=== PATIENT | male | born 1960 | race Caucasian/White ===

== ENCOUNTER 2019-09-28 13:21 | Emergency (ER) | payer MEDICAID ==
[2019-09-28 13:43] VITALS: BP 143/94; PULSE 85
--- NOTE | 2019-09-28 14:02 | EDM.PDOC ---
ED HPI GENERAL MEDICAL PROBLEM - General Chief Complaint: Lower Extremity Injury/Pain Stated Complaint: POSSIBLE BLOOD CLOT IN L LEG Time Seen by Provider: 09/28/19 13:54 Source of Information: Reports: Patient History Limitations: Reports: No Limitations - History of Present Illness INITIAL COMMENTS - FREE TEXT/NARRATIVE: Alert very pleasant 59 year old male whom just completed chemotherapy 2 weeks ago for metastatic prostate cancer. Patient noticed slight swelling left inner lower leg with swelling and slight erythema with itching noted 2-3 days ago. Patient notes swelling is intermittently worse in bilateral lower legs. Patient is still feeling some of the effects of his last round of chemotherapy but improving as expected. Patient had a superficial blood clot in his right arm after second round of chemotherapy which was treated with ASA 325mg daily. Patient and sister (whom is a nurse) are concerned regarding DVT in his left leg due to symptoms, chemotherapy/cancer diagnosis with increased risk factors. Left Ankle Pain Score (Numeric/FACES): 4 - Related Data Allergies Allergy/AdvReac Type Severity Reaction Status Date / Time codeine AdvReac Nausea and Verified 09/28/19 13:43 Vomiting Dairy Products AdvReac Diarrhea Verified 09/28/19 13:43 gluten AdvReac Nausea and Verified 09/28/19 13:43 Vomiting morphine AdvReac Nausea and Verified 09/28/19 13:43 Vomiting Home Meds: Home Meds PARoxetine [Paxil] 10 mg PO DAILY 09/28/19 [History] predniSONE [Prednisone] 5 mg PO DAILY 09/28/19 [History] Past Medical History HEENT History: Reports: Cataract Cardiovascular History: Reports: Blood Clots/VTE/DVT, Hypertension Musculoskeletal History: Reports: Fracture Psychiatric History: Reports: Depression Oncologic (Cancer) History: Reports: Prostate - Past Surgical History HEENT Surgical History: Reports: Adenoidectomy, Cataract Surgery, Tonsillectomy Musculoskeletal Surgical History: Reports: Arthroscopic Knee Social & Family History - Tobacco Use Smoking Status *Q: Never Smoker - Caffeine Use Caffeine Use: Reports: Coffee - Recreational Drug Use Recreational Drug Use: No Review of Systems - Review of Systems Review Of Systems: Comprehensive ROS is negative, except as noted in HPI. ED EXAM, GENERAL - Physical Exam Exam: See Below Exam Limited By: No Limitations General Appearance: Alert, WD/WN, No Apparent Distress Eye Exam: Bilateral Eye: Conjunctival Injection, Normal Inspection Ears: Normal External Exam, Hearing Grossly Normal Nose: Normal Inspection Throat/Mouth: Normal Inspection, Normal Voice, No Airway Compromise Head: Atraumatic, Normocephalic Neck: Normal Inspection, Supple, Non-Tender Respiratory/Chest: Lungs Clear, Normal Breath Sounds Cardiovascular: Regular Rate, Rhythm. No: No Edema GI/Abdominal: Non-Tender Extremities: Pedal Edema (spider veins noted inner lower left leg with slight erythema and swelling noted. Right lower leg simila siper veins without erythema or swelling) Neurological: Alert, Oriented, CN II-XII Intact, Normal Cognition, Normal Gait, Normal Reflexes, No Motor/Sensory Deficits Psychiatric: Normal Affect, Normal Mood Skin Exam: Warm, Dry, Intact, Normal Color, No Rash Course - Vital Signs Last Recorded V/S: Last Vital Signs Temp 36.4 C 09/28/19 13:42 Pulse 85 09/28/19 13:42 Resp 16 09/28/19 13:42 BP 143/94 H 09/28/19 13:42 Pulse Ox 98 09/28/19 13:42 - Orders/Labs/Meds Orders: Active Orders 24 hr Category Date Time Status VL Duplex Lwr Ext Veins Ltd Lt [US] Stat Exams 09/28/19 13:52 Taken - Radiology Interpretation Free Text/Narrative:: Ultrasound Left LE Venous Doppler ordered to R/O DVT. Discuss laboratory studies which may be need if DVT study positive. Patient would like to wait on blood draw at this time. He will be getting his blood drawn this coming week at the [facility] to follow-up on Cancer treatment/chemotherapy. 1500: Waiting for US to be completed at this time. Travel Occupational Therapist: noted superficial thrombophlebitis in medial left lower leg. No signs of DVT noted on doppler evaluation during ER visit. Departure - Departure Time of Disposition: 15:19 Disposition: Home, Self-Care 01 Clinical Impression: Thrombophlebitis leg - Discharge Information Instructions: Thrombophlebitis Referrals: Nick Akhtar NP [Primary Care Provider] - Forms: ED Department Discharge Additional Instructions: 1. Aspirin 325mg daily to help break up clot in left lower leg in the superficial venous system. 2. Warm compress to the area to help break-up clot formation. 3. No signs of deep vein involvement noted on Ultrasound today. 4. Repeat US in 2 weeks if symptoms remain would be recommended to ensure no new growth of DVT. 5. Follow-up with PCP as needed if new concerns or changes. Sepsis Event Note - Evaluation Sepsis Screening Result: No Definite Risk - Focused Exam Vital Signs: Vital Signs Temp Pulse Resp BP Pulse Ox 09/28/19 13:42 36.4 C 85 16 143/94 H 98 Date Exam was Performed: 09/28/19 Time Exam was Performed: 15:27 - My Orders Last 24 Hours: My Active Orders 09/28/19 13:52 VL Duplex Lwr Ext Veins Ltd Lt [US] Stat - Assessment/Plan Last 24 Hours: My Active Orders 09/28/19 13:52 VL Duplex Lwr Ext Veins Ltd Lt [US] Stat
--- NOTE | 2019-09-29 10:04 | US ---
VL Duplex Lwr Ext Veins Ltd Lt INDICATION: swelling and discomfort FINDINGS: Ultrasound examination of the lower extremity using Doppler and compressive technique demonstrates that the common femoral, femoral, and popliteal veins are patent, and negative for thrombus. The calf veins were segmentally visualized and are negative where seen. There is some thrombus seen in the greater saphenous vein in the midcalf IMPRESSION: Negative for deep venous thrombosis. Superficial thrombosis in the greater saphenous vein in the midcalf
== END 2019-09-28 15:43 | disposition home or self-care (01) ==
LOC: JP.ED 13:21
DX: I80.02 Phlebitis and thrombophlebitis of superficial vessels of left lower extremity (principal); I10 Essential (primary) hypertension; F32.9 Major depressive disorder, single episode, unspecified; Z88.5 Allergy status to narcotic agent; Z91.011 Allergy to milk products; Z91.018 Allergy to other foods; Z79.899 Other long term (current) drug therapy; Z86.718 Personal history of other venous thrombosis and embolism
CPT/HCPCS: 93971-26-LT; 93971-LT; 99283-25

== ENCOUNTER 2019-10-30 11:00 | Emergency (ER) | payer MEDICAID ==
[2019-10-30 11:16] VITALS: BP 143/97; PULSE 101
[2019-10-30] MEDS ORDERED: Sodium Chloride 0.9% 10 ML Syringe FLUSH PRN (11:31)
[2019-10-30] MEDS ORDERED: Sodium Chloride 0.9% 1,000 ML IV ONE (11:31)
[2019-10-30] MEDS ORDERED: Acetaminophen 500 MG Tab PO ONE (11:32)
--- NOTE | 2019-10-30 11:33 | EDM.PDOC ---
ED HPI GENERAL MEDICAL PROBLEM - General Chief Complaint: General Stated Complaint: PAIN UNDER LOWER RIB CAGE ON RIGHT Time Seen by Provider: 10/30/19 11:30 Source of Information: Reports: Patient History Limitations: Reports: No Limitations - History of Present Illness INITIAL COMMENTS - FREE TEXT/NARRATIVE: Kj is a 59 year old male who presents to the ED today with c/o left sided lower rib pain, started yesterday, denies any other injuries. Patient was lifting heavy yesterday, no hemoptysis. Patient has healing bruise to left side, not where pain is unsure where that was from. Patient does endorse sob for the last 24 hours. Patient denies any chest pain, pain at times is sharp, spasm in nature, ibuprofen helps minimally. Very deep breath makes pain worse. Patient just finished chemotherapy for prostate CA. Patient does have hx of DVT, was on full strength aspirin but has not been recently. Patient denies any fever or URI symptoms. Onset: Sudden Duration: Hour(s): (24) Left Chest Pain Score (Numeric/FACES): 8 - Related Data Allergies Allergy/AdvReac Type Severity Reaction Status Date / Time codeine AdvReac Nausea and Verified 09/28/19 13:43 Vomiting Dairy Products AdvReac Diarrhea Verified 09/28/19 13:43 gluten AdvReac Nausea and Verified 09/28/19 13:43 Vomiting morphine AdvReac Nausea and Verified 09/28/19 13:43 Vomiting Home Meds: Home Meds predniSONE [Prednisone] 5 mg PO DAILY 09/28/19 [History] Gabapentin [Neurontin] 300 mg PO DAILY 10/30/19 [History] Past Medical History HEENT History: Reports: Cataract Cardiovascular History: Reports: Blood Clots/VTE/DVT, Hypertension Musculoskeletal History: Reports: Fracture Psychiatric History: Reports: Depression Oncologic (Cancer) History: Reports: Prostate - Past Surgical History HEENT Surgical History: Reports: Adenoidectomy, Cataract Surgery, Tonsillectomy Musculoskeletal Surgical History: Reports: Arthroscopic Knee Social & Family History - Tobacco Use Smoking Status *Q: Never Smoker - Caffeine Use Caffeine Use: Reports: Coffee - Recreational Drug Use Recreational Drug Use: No ED ROS GENERAL - Review of Systems Review Of Systems: Comprehensive ROS is negative, except as noted in HPI. ED EXAM, GENERAL - Physical Exam Exam: See Below Exam Limited By: No Limitations General Appearance: Alert, WD/WN, Thin Eye Exam: Bilateral Eye: EOMI Ears: Normal External Exam Throat/Mouth: Normal Oropharynx Head: Atraumatic Neck: Normal Inspection, Supple Respiratory/Chest: No Respiratory Distress, Lungs Clear, Other (Tender to left area of bruising, no other tenderness appreciated) Cardiovascular: Tachycardia GI/Abdominal: Normal Bowel Sounds, Soft, Non-Tender Back Exam: Normal Inspection Extremities: Normal Inspection Neurological: Alert, Oriented, CN II-XII Intact Psychiatric: Normal Affect Skin Exam: Warm, Pallor. No: Rash Lymphatic: No Adenopathy EKG INTERPRETATION EKG Date: 10/30/19 Time: 12:05 Rhythm: NSR [place]: Normal P-Wave: Present QRS: Normal ST-T: Normal QT: Normal Course - Vital Signs Last Recorded V/S: Last Vital Signs Temp 37 C 10/30/19 11:17 Pulse 101 H 10/30/19 11:17 Resp 16 10/30/19 11:17 BP 143/97 H 10/30/19 11:17 Pulse Ox 95 10/30/19 11:17 Kj is a very pleasant 59 year old male, hx of Prostate CA, just finished chemotherapy, presents with left lower rib pain and sob for the last 24 hours. Please refer to HPI and focused exam. Patient here is pale, mildly tachycardic, oxygen saturation of 95%. Patient's symptoms certainly seem pleuritic in nature, however, given his sob in light of DVT hx along with his CA hx and tachycardia I am concerned about a PE. A d dimer will likely be high regardless given his cancer hx so I will go ahead and scan his chest. Patient given IV fluids, Tylenol for pain as he did drive himself here and declines offer for anything stronger. Patient blood work today returns with normal white count. HGB stable. Platelet count is stable. CRP is mildly elevated. UA unremarkable. CT PE unfortunately shoes multiple left lower lobe filling defects in the lower branching pulmonary arteries consistent with PE. Patient also has a 1.7 x 2.4 x 1.2 cm mass in right upper lobe of unknown chronology. I discussed findings with patient, he did provide me with primary urologist, Dr. Neves at [facility], I was able to touch base with Jes, nurse practitioner, she did inform me that patient is going to be starting Xtandi and that literature has shown that the newer anti- coagulation medications do not work well with this. Patient will be started on Lovenox with Coumadin bridge. I had a long discussion with patient, he wishes to return here for his injections for these were ordered for IVO over the weekend with INR check on Saturday. INR today is 0.94. Patient will start Coumadin 5 mg for the next 7 days unless he reaches therapeutic level prior to this. Patient was given detailed written information and was encouraged to call his PCP today or Saturday to get into their Coumadin clinic by this coming Saturday. Patient was given an injection of Lovenox here prior to discharge. I discussed in detail reasons to return to the ED including SOB, bleeding concerns. Patient was agreeable. updated by RN. Patient discharged in stable condition. I did inform KARTIK Andre at [facility] about the masslike focus on CT today in [place]. - Orders/Labs/Meds Orders: Active Orders 24 hr Category Date Time Status EKG Documentation Completion [RC] ASDIRECTED Care 10/30/19 11:30 Active Peripheral IV Care [RC] . DIRECTED Care 10/30/19 11:31 Active Iopamidol [Isovue-370 (76%)] Med 10/30/19 12:30 Active 100 ml IV . DIRECTED Sodium Chloride 0.9% [Normal Saline] 100 ml Med 10/30/19 12:30 Active IV ASDIRECTED Sodium Chloride 0.9% [Saline Flush] Med 10/30/19 11:31 Active 10 ml FLUSH ASDIRECTED PRN Peripheral IV Insertion Adult [OM.PC] Routine Oth 10/30/19 11:31 Ordered EKG 12 Lead [EK] Stat Ther 10/30/19 11:30 Ordered Medication Orders Sodium Chloride (Normal Saline) 100 mls @ 3 mls/sec IV ASDIRECTED ELAINE Last Admin: 10/30/19 12:39 Dose: 3 mls/sec Documented by: JENNIFER Iopamidol (Isovue-370 (76%)) 100 ml IV . DIRECTED ELAINE Last Admin: 10/30/19 12:39 Dose: 100 ml Documented by: JENNIFER Sodium Chloride (Saline Flush) 10 ml FLUSH ASDIRECTED PRN PRN Reason: Keep Vein Open Last Admin: 10/30/19 11:46 Dose: 10 ml Documented by: HALLIAN Labs: Laboratory Tests 10/30/19 10/30/19 10/30/19 Range/Units 11:33 11:42 11:42 WBC 6.0 (4.5-11.0) K/uL RBC 2.69 L (4.30-5.90) M/uL Hgb 10.6 L D (12.0-15.0) g/dL Hct 31.4 L (40.0-54.0) % MCV 117 H (80-98) fL MCH 39 H (27-31) pg MCHC 34 (32-36) % Plt Count 161 (150-400) K/uL Neut % (Auto) 81 H (36-66) % Lymph % (Auto) 8 L (24-44) % Spink % (Auto) 10 H (2-6) % Eos % (Auto) 1 L (2-4) % Baso % (Auto) 0 (0-1) % PT (9.5-12.0) sec INR (0.80-1.20) Sodium 140 (140-148) mmol/L Potassium 3.7 (3.6-5.2) mmol/L Chloride 104 (100-108) mmol/L Carbon Dioxide 26 (21-32) mmol/L Anion Gap 13.7 (5.0-14.0) mmol/L BUN 13 (7-18) mg/dL Creatinine 0.9 (0.8-1.3) mg/dL Est Cr Clr Drug Dosing 80.58 mL/min Estimated GFR (MDRD) > 60 (>60) Glucose 123 H (74-106) mg/dL Calcium 8.4 L (8.5-10.1) mg/dL Total Bilirubin 1.1 H (0.2-1.0) mg/dL AST 23 (15-37) U/L ALT 29 (12-78) U/L Alkaline Phosphatase 85 (46-116) U/L Troponin I (0.000-0.056) ng/mL C-Reactive Protein (0.0-0.3) mg/dL Total Protein 7.1 (6.4-8.2) g/dL Albumin 3.4 (3.4-5.0) g/dL Globulin 3.7 H (2.3-3.5) g/dL Albumin/Globulin Ratio 0.9 L (1.2-2.2) Urine Color Other A (YELLOW) Urine Appearance Clear (CLEAR) Urine pH 5.5 (5.0-8.0) Ur Specific [place] 1.010 (1.008-1.030) Urine Protein 30 H (NEGATIVE) mg/dL Urine Glucose (UA) Negative (NEGATIVE) mg/dL Urine Ketones Negative (NEGATIVE) mg/dL Urine Occult Blood Trace-intact H (NEGATIVE) Urine Nitrite Negative (NEGATIVE) Urine Bilirubin Small H (NEGATIVE) Urine Urobilinogen 0.2 (0.2-1.0) EU/dL Ur Leukocyte Esterase Negative (NEGATIVE) Urine RBC 0-5 (0-5) Urine WBC Not seen (0-5) Ur Epithelial Cells Not seen Amorphous Sediment Not seen Urine Bacteria Not seen Urine Mucus Moderate 10/30/19 10/30/19 10/30/19 Range/Units 11:42 11:58 13:54 WBC (4.5-11.0) K/uL RBC (4.30-5.90) M/uL Hgb (12.0-15.0) g/dL Hct (40.0-54.0) % MCV (80-98) fL MCH (27-31) pg MCHC (32-36) % Plt Count (150-400) K/uL Neut % (Auto) (36-66) % Lymph % (Auto) (24-44) % Spink % (Auto) (2-6) % Eos % (Auto) (2-4) % Baso % (Auto) (0-1) % PT 10.2 (9.5-12.0) sec INR 0.94 (0.80-1.20) Sodium (140-148) mmol/L Potassium (3.6-5.2) mmol/L Chloride (100-108) mmol/L Carbon Dioxide (21-32) mmol/L Anion Gap (5.0-14.0) mmol/L BUN (7-18) mg/dL Creatinine (0.8-1.3) mg/dL Est Cr Clr Drug Dosing mL/min Estimated GFR (MDRD) (>60) Glucose (74-106) mg/dL Calcium (8.5-10.1) mg/dL Total Bilirubin (0.2-1.0) mg/dL AST (15-37) U/L ALT (12-78) U/L Alkaline Phosphatase (46-116) U/L Troponin I < 0.017 (0.000-0.056) ng/mL C-Reactive Protein 9.62 H (0.0-0.3) mg/dL Total Protein (6.4-8.2) g/dL Albumin (3.4-5.0) g/dL Globulin (2.3-3.5) g/dL Albumin/Globulin Ratio (1.2-2.2) Urine Color (YELLOW) Urine Appearance (CLEAR) Urine pH (5.0-8.0) Ur Specific Eugene (1.008-1.030) Urine Protein (NEGATIVE) mg/dL Urine Glucose (UA) (NEGATIVE) mg/dL Urine Ketones (NEGATIVE) mg/dL Urine Occult Blood (NEGATIVE) Urine Nitrite (NEGATIVE) Urine Bilirubin (NEGATIVE) Urine Urobilinogen (0.2-1.0) EU/dL Ur Leukocyte Esterase (NEGATIVE) Urine RBC (0-5) Urine WBC (0-5) Ur Epithelial Cells Amorphous Sediment Urine Bacteria Urine Mucus Meds: Medications Generic Name Dose Route Start Last Admin Trade Name Freq PRN Reason Stop Dose Admin Sodium Chloride 100 mls @ 3 mls/sec 10/30/19 12:30 10/30/19 12:39 Normal Saline IV 3 mls/sec ASDIRECTED ELAINE Administration Iopamidol 100 ml 10/30/19 12:30 10/30/19 12:39 Isovue-370 (76%) IV 100 ml . DIRECTED ELAINE Administration Sodium Chloride 10 ml 10/30/19 11:31 10/30/19 11:46 Saline Flush FLUSH 10 ml ASDIRECTED PRN Administration Keep Vein Open Discontinued Medications Generic Name Dose Route Start Last Admin Trade Name Freq PRN Reason Stop Dose Admin Acetaminophen 1,000 mg 10/30/19 11:32 10/30/19 11:48 Tylenol Extra Strength PO 10/30/19 11:33 1,000 mg ONETIME ONE Administration Enoxaparin Sodium 80 mg 10/30/19 14:11 Lovenox SUBCUT 10/30/19 14:12 ONETIME ONE Sodium Chloride 1,000 mls @ 999 mls/hr 10/30/19 11:31 10/30/19 11:44 Normal Saline IV 06/26/20 12:31 999 mls/hr .BOLUS ONE Administration Sodium Chloride 10 ml 10/30/19 12:26 10/30/19 12:39 Saline Flush FLUSH 10/30/19 12:27 10 ml ONETIME ONE Administration Warfarin Sodium 5 mg 10/30/19 14:14 Coumadin PO 10/30/19 14:15 ONETIME ONE Departure - Departure Time of Disposition: 15:00 Disposition: Home, Self-Care 01 Condition: Fair Clinical Impression: PE, Pulmonary embolism, Left-sided chest pain, Mass of upper lobe of lung - Discharge Information Instructions: Bleeding Precautions When on Anticoagulant Therapy, Adult, Pulmonary Embolism Referrals: Nick Akhtar BIODIESEL ENGINEERING MANAGER [Primary Care Provider] - Forms: ED Department Discharge Additional Instructions: Kj, You have a pulmonary embolism. We need to start you on an injection that thins your blood for the next few days called Lovenox. You need to come here preferably by 8 AM tomorrow morning for your next injection. You will need to come twice a day, as close to 12 hours apart as you can. So 8 AM tomorrow morning then 8 PM tomorrow evening. You will also start taking Coumadin (warfarin) daily. This will be for the next few months. We dose your Coumadin by checking a blood test called an INR. It needs to be between 2-3. You were given a dose here in the ER so do not take another dose until tomorrow and try to take them at the same time every day. You only take the pill (Coumadin) once a day. I ordered your INR to be checked on the here prior to your Lovenox injection. You need to call your primary doctor on Saturday at the clinic. They have an "INR clinic" that you should be following up with, the clinic can arrange that for you on Saturday. They will tell you on Saturday if you need to continue with the Lovenox injection and if you need to change your Coumadin dosing. Make sure you call them, I unfortunately cannot schedule this for you. If you want, you can call them when you get home today. Return here with any worsening shortness of breath or bleeding concerns. Take care and good luck with everything, it was nice meeting you. Sepsis Event Note (ED) - Evaluation Sepsis Screening Result: No Definite Risk - Focused Exam Vital Signs: Vital Signs Temp Pulse Resp BP Pulse Ox 10/30/19 11:17 37 C 101 H 16 143/97 H 95 10/30/19 11:16 37 C 101 H 16 143/97 H 95 - My Orders Last 24 Hours: My Active Orders 10/30/19 11:30 EKG Documentation Completion [RC] ASDIRECTED EKG 12 Lead [EK] Stat 10/30/19 11:31 Peripheral IV Care [RC] . DIRECTED Sodium Chloride 0.9% [Saline Flush] 10 ml FLUSH ASDIRECTED PRN Peripheral IV Insertion Adult [OM.PC] Routine 10/30/19 12:30 Iopamidol [Isovue-370 (76%)] 100 ml IV . DIRECTED Sodium Chloride 0.9% [Normal Saline] 100 ml IV ASDIRECTED - Assessment/Plan Last 24 Hours: My Active Orders 10/30/19 11:30 EKG Documentation Completion [RC] ASDIRECTED EKG 12 Lead [EK] Stat 10/30/19 11:31 Peripheral IV Care [RC] . DIRECTED Sodium Chloride 0.9% [Saline Flush] 10 ml FLUSH ASDIRECTED PRN Peripheral IV Insertion Adult [OM.PC] Routine 10/30/19 12:30 Iopamidol [Isovue-370 (76%)] 100 ml IV . DIRECTED Sodium Chloride 0.9% [Normal Saline] 100 ml IV ASDIRECTED
[2019-10-30] MEDS ORDERED: Sodium Chloride 0.9% 10 ML Syringe FLUSH ONE (12:26)
[2019-10-30] MEDS ORDERED: Sodium Chloride 0.9% 100 ML IV SCH (12:30)
[2019-10-30] MEDS ORDERED: Iopamidol 755 Mg/ML 100 ML Bottle IV SCH (12:30)
--- NOTE | 2019-10-30 12:59 | CT ---
Ang Chest CLINICAL HISTORY: SOB TECHNIQUE: Thin section axial contiguous tomographic sections were taken through the chest after bolus IV iodinated contrast administration. Coronal and sagittal images were reconstructed. Auto dosage reduction and iterative reconstruction techniques employed. FINDINGS: There is a 1.7 x 2.4 x 1.2 cm irregular masslike focus in the right posterior apex. There is some stranding extending to the posterior pleura. There is moderate airspace disease in the left lower lobe with some left pleural effusion There is vessel cut off seen in branching left lower lobe pulmonary arteries in the area of airspace disease. IMPRESSION: Multiple left lower lobe filling defects in the lower branching pulmonary arteries consistent with pulmonary embolus. The left effusion with airspace disease may represent pulmonary infarct. 1.7 x 2.4 x 1.2 cm irregular masslike focus in the right upper lobe of unknown chronology. Neoplasm is not excluded
[2019-10-30] MEDS ORDERED: Enoxaparin 80 MG/0.8 ML Syringe SUBCUT ONE (14:11)
[2019-10-30] MEDS ORDERED: Warfarin 5 MG Tab PO ONE (14:14)
== END 2019-10-30 14:49 | disposition home or self-care (01) ==
LOC: JP.ED 11:00
DX: I26.99 Other pulmonary embolism without acute cor pulmonale (principal); I10 Essential (primary) hypertension; R91.8 Other nonspecific abnormal finding of lung field; Z88.5 Allergy status to narcotic agent; Z91.011 Allergy to milk products; Z91.048 Other nonmedicinal substance allergy status; Z79.899 Other long term (current) drug therapy
CPT/HCPCS: 36415; 71275; 80053; 81001; 84484; 85025; 85610; 86140; 93005; 96372; 99284; A9270; J1650; J7030; J7050; Q9967

== ENCOUNTER 2019-12-31 14:28 | Emergency (ER) | payer MEDICAID ==
[2019-12-31 15:13] VITALS: BP 151/91; PULSE 74
--- NOTE | 2019-12-31 15:45 | EDM.PDOC ---
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 Waxing and waning. Denies any trauma or injury. Denies any swelling. Denies any redness. Denies any chest pain shortness breath. Denies any cough or fever. Denies any abdominal pain diarrhea or constipation. Denies any urinary symptom. Right Leg Pain Score (Numeric/FACES): 5 - Related Data Allergies Allergy/AdvReac Type Severity Reaction Status Date / Time codeine AdvReac Nausea and Verified 12/31/19 15:32 Vomiting Dairy Products AdvReac Diarrhea Verified 12/31/19 15:32 gluten AdvReac Nausea and Verified 12/31/19 15:32 Vomiting morphine AdvReac Nausea and Verified 12/31/19 15:32 Vomiting Home Meds: Home Meds Gabapentin [Neurontin] 300 mg PO DAILY 10/30/19 [History] Enzalutamide [Xtandi] 120 mg PO DAILY 12/31/19 [History] Leuprolide [Lupron Depot 3-Month] 1 injection IM ASDIRECTED 12/31/19 [History] Losartan [Cozaar] 50 mg PO DAILY 12/31/19 [History] PARoxetine [Paxil] 10 mg PO DAILY 12/31/19 [History] [place]-223 Dichloride [Xofigo] 1 dose IM ASDIRECTED 12/31/19 [History] Warfarin [Coumadin] 0 mg PO ASDIRECTED 12/31/19 [History] Past Medical History HEENT History: Reports: Cataract Cardiovascular History: Reports: Blood Clots/VTE/DVT, Hypertension Musculoskeletal History: Reports: Fracture Psychiatric History: Reports: Depression Oncologic (Cancer) History: Reports: Prostate - Past Surgical History HEENT Surgical History: Reports: Adenoidectomy, Cataract Surgery, Tonsillectomy Musculoskeletal Surgical History: Reports: Arthroscopic Knee Social & Family History - Tobacco Use Smoking Status *Q: Never Smoker - Caffeine Use Caffeine Use: Reports: Coffee - Recreational Drug Use Recreational Drug Use: No Review of Systems - Review of Systems Review Of Systems: Comprehensive ROS is negative, except as noted in HPI. ED EXAM, GENERAL - Physical Exam Exam: See Below Exam Limited By: No Limitations General Appearance: Alert, WD/WN, No Apparent Distress Head: Atraumatic, Normocephalic Neck: Normal Inspection, Supple, Non-Tender, Full Range of Motion Respiratory/Chest: No Respiratory Distress, Lungs Clear, Normal Breath Sounds, No Accessory Muscle Use, Chest Non-Tender Cardiovascular: Normal Peripheral Pulses, Regular Rate, Rhythm, No Edema, No Gallop, No JVD, No Murmur, No Rub GI/Abdominal: Normal Bowel Sounds, Soft, Non-Tender, No Organomegaly, No Distention, No Abnormal Bruit, No Mass Extremities: Normal Inspection, Normal Range of Motion, Non-Tender, No Pedal Edema, Normal Capillary Refill, Leg Pain. No: Joint Swelling, Aravind's Sign, Redness Neurological: Alert, Oriented, CN II-XII Intact, Normal Cognition, Normal Gait, Normal Reflexes, No Motor/Sensory Deficits Skin Exam: Warm, Dry, Intact, Normal Color, No Rash Course - Vital Signs Last Recorded V/S: Last Vital Signs Temp 36.1 C 12/31/19 15:30 Pulse 74 12/31/19 15:30 Resp 16 12/31/19 15:30 BP 151/91 H 12/31/19 15:30 Pulse Ox 98 12/31/19 15:30 - Orders/Labs/Meds Orders: Active Orders 24 hr Category Date Time Status VL Duplex Lwr Ext Veins Ltd Rt [US] Stat Exams 12/31/19 15:49 Ordered - Radiology Interpretation Free Text/Narrative:: Patient was seen and examined shortly after arrival. Stable. Ultrasound negative for DVT. Patient was reassured. Advised to continue his home meds. Close follow-up with PCP. Come back for any concern or any worsening symptom. Patient agrees with the plan. Stable for discharge. Departure - Departure Time of Disposition: 17:00 Disposition: Home, Self-Care 01 Condition: Good Clinical Impression: Leg pain, right - Discharge Information Referrals: Nick Akhtar, ENVIRONMENTAL PROTECTION SPECIALIST [Primary Care Provider] - Forms: ED Department Discharge Additional Instructions: Rest and stay well-hydrated Tylenol for pain or discomfort Close follow-up with PCP in one week, sooner if symptom worsen Come back for any concern or any worsening symptom Sepsis Event Note (ED) - Evaluation Sepsis Screening Result: No Definite Risk - Focused Exam Vital Signs: Vital Signs Temp Pulse Resp BP Pulse Ox 12/31/19 15:30 36.1 C 74 16 151/91 H 98 12/31/19 15:11 36.1 C 74 16 151/91 H 98 - My Orders Last 24 Hours: My Active Orders 12/31/19 15:49 VL Duplex Lwr Ext Veins Ltd Rt [US] Stat - Assessment/Plan Last 24 Hours: My Active Orders 12/31/19 15:49 VL Duplex Lwr Ext Veins Ltd Rt [US] Stat Plan: Rest and stay well-hydrated Tylenol for pain or discomfort Close follow-up with PCP in one week, sooner if symptom worsen Come back for any concern or any worsening symptom
--- NOTE | 2020-01-01 09:20 | US ---
VL Duplex Lwr Ext Veins Ltd Rt INDICATION: rt leg pain FINDINGS: Ultrasound examination of the lower extremity using Doppler and compressive technique demonstrates that the common femoral, femoral, and popliteal veins are patent, and compressible throughout. The calf veins were segmentally visualized and are negative where seen. IMPRESSION: Negative for deep venous thrombosis.
== END 2019-12-31 17:20 | disposition home or self-care (01) ==
LOC: JP.ED 14:28
DX: M79.661 Pain in right lower leg (principal); I10 Essential (primary) hypertension; F32.9 Major depressive disorder, single episode, unspecified; Z79.899 Other long term (current) drug therapy; Z86.718 Personal history of other venous thrombosis and embolism; Z86.711 Personal history of pulmonary embolism; Z79.01 Long term (current) use of anticoagulants; Z88.5 Allergy status to narcotic agent; Z91.011 Allergy to milk products; Z91.048 Other nonmedicinal substance allergy status
CPT/HCPCS: 93971-26; 93971-RT; 99283-25

== ENCOUNTER 2021-01-14 17:58 | Emergency (ER) | payer MEDICAID ==
[2021-01-14 18:15] VITALS: BP 140/76; PULSE 81
--- NOTE | 2021-01-14 19:24 | CRLCR ---
For Patients: As a result of the Century Cures Act, medical imaging exams and procedure reports are released immediately into your electronic medical record. You may view this report before your referring provider. If you have questions, please contact your health care provider. Indication: Pain. Swelling. Technique: Three views of the right ankle. Comparison: None Findings: FindingsA comminuted fracture of the calcaneus is identified. Ankle mortise is intact. The talar dome is intact. Impression: Calcaneal fracture Dictated by Dalia Burrows MD @ 01/14/2021 7:21:46 PM (Electronically Signed)
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
== END 2021-01-14 20:06 | disposition home or self-care (01) ==
LOC: JP.ED 17:58
DX: S92.011A Displaced fracture of body of right calcaneus, initial encounter for closed fracture (principal); I10 Essential (primary) hypertension; Z79.01 Long term (current) use of anticoagulants; Z79.899 Other long term (current) drug therapy; Z88.5 Allergy status to narcotic agent; Z91.018 Allergy to other foods; Z86.718 Personal history of other venous thrombosis and embolism; Z91.011 Allergy to milk products; W22.09XA Striking against other stationary object, initial encounter
CPT/HCPCS: 29515; 73610-RT; 99283-25

== ENCOUNTER 2021-02-01 15:33 | Inpatient (IN) | payer MEDICAID ==
[2021-02-01] MEDS ORDERED: Cefepime 2 GM in Sodium Chloride 0.9% 50 ML IV ONE (17:20)
--- NOTE | 2021-02-01 17:27 | EDM.PDOC ---
ED HPI GENERAL MEDICAL PROBLEM - General Chief Complaint: Fever Stated Complaint: INFECTION? Time Seen by Provider: 02/01/21 17:10 - History of Present Illness INITIAL COMMENTS - FREE TEXT/NARRATIVE: 60-year-old female with a known long history of prostatic cancer widely metastatic apparently had 3 courses of chemotherapy over time and finished the last one about 8 days ago. Today he had a fever and comes because of that. His white count is extremely low noted in the clinic today compatible with a diagnosis of neutropenic fever. He has no cough or urinary symptoms or any other obvious sources urinalysis done and clinic this morning and apparently negative with no chest x-ray - Related Data Allergies Allergy/AdvReac Type Severity Reaction Status Date / Time codeine AdvReac Nausea and Verified 02/01/21 15:57 Vomiting Dairy Products AdvReac Diarrhea Verified 02/01/21 15:57 gluten AdvReac Nausea and Verified 02/01/21 15:57 Vomiting morphine AdvReac Nausea and Verified 02/01/21 15:57 Vomiting Home Meds: Home Meds Gabapentin [Neurontin] 300 mg PO TID 10/30/19 [History] Leuprolide [Lupron Depot 3-Month] 1 injection IM ASDIRECTED 12/31/19 [History] Warfarin [Coumadin] 1.5 mg PO ASDIRECTED 12/31/19 [History] Calcium Carbonate [Calcium] 250 mg PO DAILY 01/16/21 [History] Ubidecarenone [Coenzyme Q10] 400 mg PO DAILY 01/16/21 [History] Vitamin B Complex [B Complex] 1 each PO DAILY 01/16/21 [History] predniSONE [Prednisone] 5 mg PO BID 01/16/21 [History] Past Medical History HEENT History: Reports: Cataract Cardiovascular History: Reports: Blood Clots/VTE/DVT, Hypertension Musculoskeletal History: Reports: Fracture Other Musculoskeletal History: R heel Fx 01/14/21 Psychiatric History: Reports: Depression Oncologic (Cancer) History: Reports: Prostate - Infectious Disease History Infectious Disease History: Reports: Chicken Pox - Past Surgical History HEENT Surgical History: Reports: Adenoidectomy, Cataract Surgery, Tonsillectomy Musculoskeletal Surgical History: Reports: Arthroscopic Knee Social & Family History - Tobacco Use Tobacco Use Status *Q: Never Tobacco User - Caffeine Use Caffeine Use: Reports: Coffee, Soda, Tea ED ROS GENERAL - Review of Systems Review Of Systems: Comprehensive ROS is negative, except as noted in HPI. ED EXAM, SEPSIS - Physical Exam Exam: See Below Text/Narrative:: Alert cooperative male with normal vital signs appearing pale as he lays in a gurney. HEENT shows pale sclera. No facial droop. Mouth and throat appear to be normal. Neck is supple no increased nodes chest clear regular rate and rhythm no abnormal sounds abdomen soft active bowel sounds nontender skin extremities are pale but otherwise has no rash or petechiae or any other obvious abnormalities. Neurologic physiologic DTR and tone Exam Limited By: No Limitations Course - Vital Signs Text/Narrative:: Because of the likelihood of neutropenic fever secondary to chemotherapy course finished a week ago and no obvious source, he is given 2 g of cefepime to start for prophylaxis and will be admitted for neutropenic fever Last Recorded V/S: Last Vital Signs Temp 36.4 C 02/01/21 15:56 Pulse 109 H 02/01/21 18:18 Resp 18 02/01/21 18:18 BP 120/84 02/01/21 18:18 Pulse Ox 95 02/01/21 18:18 - Orders/Labs/Meds Orders: Active Orders 24 hr Category Date Time Status CULTURE BLOOD [BC] Stat Lab 02/01/21 17:30 Received Meds: Medications Discontinued Medications Generic Name Dose Route Start Last Admin Trade Name Deisy PRAndre Reason Stop Dose Admin Cefepime HCl Confirm 02/01/21 17:51 Cefepime 1 Gm Vial Administered 02/01/21 17:52 Dose 2 gm .ROUTE .STK-MED ONE Cefepime HCl 2 gm/ Sodium 50 mls @ 100 mls/hr 02/01/21 17:20 02/01/21 18:12 Chloride IV 02/01/21 17:49 100 mls/hr ONETIME ONE Administration Sodium Chloride Confirm 02/01/21 17:51 Normal Saline Administered 02/01/21 17:52 Dose 50 mls @ as directed .ROUTE .STK-MED ONE Departure - Departure Time of Disposition: 19:00 Disposition: Admitted As Inpatient 64 Condition: Good Clinical Impression: Chemotherapy induced neutropenia - Discharge Information Referrals: Nick Akhtar SERVICE LEARNING COORDINATOR [Primary Care Provider] - Forms: ED Department Discharge Sepsis Event Note (ED) - Evaluation Sepsis Screening Result: Possible Sepsis Risk - Focused Exam Vital Signs: Vital Signs Temp Pulse Resp BP Pulse Ox 02/01/21 18:18 109 H 18 120/84 95 02/01/21 17:49 98 110/81 02/01/21 17:23 110 H 113/83 93 L 02/01/21 16:43 107 H 106/83 94 L 02/01/21 15:56 36.4 C 124 H 16 135/86 96 02/01/21 15:44 36.4 C 124 H 16 135/86 96 - My Orders Last 24 Hours: My Active Orders 02/01/21 17:30 CULTURE BLOOD [BC] Stat - Assessment/Plan Last 24 Hours: My Active Orders 02/01/21 17:30 CULTURE BLOOD [BC] Stat
[2021-02-01] MEDS ORDERED: Cefepime 1 GM Vial ONE (17:51)
[2021-02-01] MEDS ORDERED: Sodium Chloride 0.9% 50 ML ONE (17:51)
[2021-02-01] MEDS ORDERED: Ondansetron 4 MG/2 ML SDV IVPUSH ONE (19:43)
[2021-02-01] MEDS ORDERED: Vancomycin 1 GM SDV IV SCH (20:00)
--- NOTE | 2021-02-01 20:40 | PCM.HP.2 ---
H&P History of Present Illness - General Date of Service: 02/01/21 Admit Problem/Dx: Admission Diagnosis/Problem Admission Diagnosis/Problem Neutropenia Source of Information: Patient, Family (), RN History Limitations: Reports: No Limitations - History of Present Illness Onset of Symptoms: Reports: Gradual Duration of Symptoms: Reports: Day(s): (worsen symptoms for the past 36 hrs. ) Location: Reports: Generalized (fever and chills for the past 36 hours, with highest temp being 101.4 on Saturday. not feeling well for the past few weeks.) Severity: Moderate Improves with: Reports: None Worsens with: Reports: None Context: Reports: Other (last chemo treatment 8 days ago ) Associated Symptoms: Reports: Fever/Chills, Loss of Appetite, Malaise, Nausea/Vomiting, Weakness - Related Data Allergies/Adverse Reactions: Allergies Allergy/AdvReac Type Severity Reaction Status Date / Time codeine AdvReac Nausea and Verified 02/01/21 15:57 Vomiting Dairy Products AdvReac Diarrhea Verified 02/01/21 15:57 gluten AdvReac Nausea and Verified 02/01/21 15:57 Vomiting morphine AdvReac Nausea and Verified 02/01/21 15:57 Vomiting Home Medications: Home Meds Gabapentin [Neurontin] 300 mg PO TID 10/30/19 [History] Leuprolide [Lupron [place] 3-Month] 1 injection IM ASDIRECTED 12/31/19 [History] Warfarin [Coumadin] 1.5 mg PO ASDIRECTED 12/31/19 [History] Calcium Carbonate [Calcium] 250 mg PO DAILY 01/16/21 [History] Ubidecarenone [Coenzyme Q10] 400 mg PO DAILY 01/16/21 [History] Vitamin B Complex [B Complex] 1 each PO DAILY 01/16/21 [History] predniSONE [Prednisone] 5 mg PO BID 01/16/21 [History] Past Medical History HEENT History: Reports: Cataract Cardiovascular History: Reports: Blood Clots/VTE/DVT, Hypertension Musculoskeletal History: Reports: Fracture Other Musculoskeletal History: R heel Fx 01/14/21 Psychiatric History: Reports: Depression Oncologic (Cancer) History: Reports: Prostate - Infectious Disease History Infectious Disease History: Reports: Chicken Pox - Past Surgical History HEENT Surgical History: Reports: Adenoidectomy, Cataract Surgery, Tonsillectomy Musculoskeletal Surgical History: Reports: Arthroscopic Knee Social & Family History - Tobacco Use Tobacco Use Status *Q: Never Tobacco User - Caffeine Use Caffeine Use: Reports: Coffee, Soda, Tea - Living Situation & Occupation Living situation: Reports: Occupation: Employed (lives with in [place], [place]. has two children age 31 yr and 34 yrs, 4 grandchildren.) H&P Review of Systems - Review of Systems: Review Of Systems: See Below General: Reports: Fever, Chills, Malaise, Weakness, Fatigue, Decreased Appetite HEENT: Reports: No Symptoms Pulmonary: Reports: No Symptoms Cardiovascular: Reports: No Symptoms Gastrointestinal: Reports: Diarrhea (reports from the chemo- has chronic diarrhea), Decreased Appetite, Nausea Genitourinary: Reports: Other (stage 4 prostate cancer with mets to the bone. first diagnosed 4 years ago. treatment at [facility]) Musculoskeletal: Reports: Foot Pain (fracture heel 2 weeks ago- stepped off the stair and missed. treatment non-wt bearing with recheck in 5 days with xray) Skin: Reports: No Symptoms Psychiatric: Reports: No Symptoms Neurological: Reports: No Symptoms Hematologic/Lymphatic: Reports: Anemia Immunologic: Reports: Anaphylaxis Exam - Exam Exam: See Below - Vital Signs Vital Signs: Last Vital Signs Temp 97.6 F 02/01/21 15:56 Pulse 109 H 02/01/21 18:18 Resp 18 02/01/21 18:18 BP 120/84 02/01/21 18:18 Pulse Ox 95 02/01/21 18:18 Weight: 153 lb - Exam Quality Assessment: DVT Prophylaxis General: Alert, Oriented, Cooperative, Mild Distress HEENT: PERRLA, Hearing Intact, Mucosa Moist & [place], Nares Patent, Normal Nasal Septum, Posterior Pharynx Clear, Conjunctiva Clear, EOMI, EACs Clear, TMs Clear Neck: Supple, Trachea Midline, 2 Lungs: Clear to Auscultation, Normal Respiratory Effort Cardiovascular: Regular Rate, Regular Rhythm GI/Abdominal Exam: Normal Bowel Sounds, Soft, Non-Tender, No Abnormal Bruit (Male) Exam: Deferred Rectal (Males) Exam: Deferred Extremities: Other (right foot and toes with edema/bruising/harshal wrap.) Peripheral Pulses: 2+: Radial (L), Radial (R) Skin: Warm, Dry, Intact, Ecchymosis (right foot and toes) Neurological: Cranial Nerves Intact, Reflexes Equal Bilateral, Strength Equal Bilateral, Normal Speech, Normal Tone Neuro Extensive - Mental Status: Alert, Oriented x3, Normal Mood/Affect, Normal Cognition Neuro Extensive - Motor, Sensory, Reflexes: Motor/Sensory Deficits (due to right calcaneous fracture). No: Normal Gait (ambulates with scooter) Psychiatric: Alert, Normal Affect, Normal Mood - Patient Data Lab Results Last 24 hrs: Laboratory Results - last 24 hr 02/01/21 Range/Units 19:05 SARS-CoV-2 RNA (BASILIO) Negative (NEGATIVE) Sepsis Event Note - Evaluation Sepsis Screening Result: Possible Sepsis Risk - Focused Exam Vital Signs: Vital Signs Temp Pulse Resp BP Pulse Ox 02/01/21 18:18 109 H 18 120/84 95 02/01/21 17:49 98 110/81 02/01/21 17:23 110 H 113/83 93 L 02/01/21 16:43 107 H 106/83 94 L 02/01/21 15:56 97.6 F 124 H 16 135/86 96 02/01/21 15:44 97.6 F 124 H 16 135/86 96 - Problem List (1) Chemotherapy induced neutropenia SNOMED Code(s): 426222713 ICD Code: D70.1 - AGRANULOCYTOSIS SECONDARY TO CANCER CHEMOTHERAPY; T45.1X5A - ADVERSE EFFECT OF ANTINEOPLASTIC AND IMMUNOSUP DRUGS, INIT Status: Acute Priority: High Current Visit: Yes (2) History of prostate cancer SNOMED Code(s): 234383761 ICD Code: Z85.46 - PERSONAL HISTORY OF MALIGNANT NEOPLASM OF PROSTATE Status: Chronic Current Visit: No (3) Closed right calcaneal fracture SNOMED Code(s): 59946173 ICD Code: S92.001A - UNSP FRACTURE OF RIGHT CALCANEUS, INIT FOR CLOS FX Status: Acute Priority: Low Current Visit: No Qualifiers: Encounter type: initial encounter Calcaneus location: body Fracture alignment: displaced Qualified Code(s): S92.011A - Displaced fracture of body of right calcaneus, initial encounter for closed fracture (4) Personal history of DVT (deep vein thrombosis) SNOMED Code(s): 214035611 ICD Code: Z86.718 - PERSONAL HISTORY OF OTHER VENOUS THROMBOSIS AND EMBOLISM Status: Chronic Current Visit: No (5) Neutropenia SNOMED Code(s): 675522058 ICD Code: D70.9 - NEUTROPENIA, UNSPECIFIED Status: Acute Current Visit: Yes Problem List Initiated/Reviewed/Updated: Yes Orders Last 24hrs: Active Orders 24 hr Category Date Time Status Patient Status Manage Transfer [TRANSFER] Routine ADT 02/01/21 20:11 Active Chest 1V Frontal [CR] Urgent Exams 02/01/21 19:41 Taken CULTURE BLOOD [BC] Stat Lab 02/01/21 17:30 Received Sodium Chloride 0.9% [Normal Saline] 1,000 ml Med 02/01/21 19:45 Active IV ASDIRECTED Vancomycin Med 02/01/21 20:00 Active 1 gm IV .PHARMACY TO DOSE Blood Culture x2 Reflex Set [OM.PC] Urgent Oth 02/01/21 19:42 Ordered Resuscitation Status Routine Resus Stat 02/01/21 20:24 Ordered Medication Orders Sodium Chloride (Normal Saline) 1,000 mls @ 125 mls/hr IV ASDIRECTED ELAINE Vancomycin HCl (Vancomycin 1 Gm Sdv) 1 gm IV .PHARMACY TO DOSE ELAINE Assessment/Plan Comment:: Assessment/Plan Comment:: ASSESSMENT AND PLAN - NEUTROPENIA, CHEMOTHERAPY INDUCED NEUTROPENIA, HISTORY OF PROSTATE CANCER WITH METS., PERSONAL HISTORY OF DVT, CLOSED RIGHT CALCANEAL FRACTURE NEUTROPENIA , CHEMOTHERAPY INDUCED NEUTROPENIA, HISTORY OF PROSTATE CANCER WITH METS TO BONE Mr. Sera west had chemotherapy about 8 days ago, since then has been weak and not eating well. reports no abdominal pain but does have nausea and vomiting with chronic diarrhea. report very little intake for the past 36 hours. He had a fever of 101.4 yesterday. They call [facility] and were advised to seek evaluation. Mr. Sera west was diagnosed with stage 4 Prostate cancer with mets to the bone 6 years ago. Received treatment at the [facility], reports has episodes of remission, then cancer is back in another place. multi rounds of chemo both oral and IV with radiation. -admit to 2 [place] -IV fluids Normal Saline at 125 ml/hr -IV Zofran 4 mg every 4 hours as needed for nausea -Antibiotic coverage with IV Maxipime 2 gram every 8 hour and IV Vanco 1 gram every 12 hours - pharmacy to dose -Supplement oxygen prn -chest xray in ER- does not show any infiltrate in lower lobes, but does show mass in upper lobes of lung. -blood culture x2 pending -am labs CBC, CMP. HISTORY OF DVT -Coumadin as directed -INR/PT in am Closed right calcaneal fracture- about 2 weeks ago, stepped off the steps and missed a step- fracturing the right calcaneus. schedule to have x-ray in 5 days. use of mobility scooter to ambulate. harshal wrapped. non-wt bearing -Tylenol or Motrin for pain Maintenance issues - - DVT prophylaxis -Coumadin - GI prophylaxis -PPI - Nutrition -regular - Ba catheter -not indicated CODE STATUS -FULL Admission justification -this patient will be admitted for inpatient services and is medically appropriate meeting medical necessity for inpatient admission as outlined in my documentation. I reasonably expect the patient will require inpatient services that span a period time over 2 midnights. I reasonably expect this patient to be discharged or transferred within 96 hours [facility]. Disposition -home with . Primary care physician - Nick Albright NP Hospitalist- Mauricio Helms M.D. - Mortality Measure Prognosis:: Good - Mortality Measure Prognosis:: Good
[2021-02-01] MEDS ORDERED: Ondansetron 4 MG/2 ML SDV IV PRN (20:49)
[2021-02-01] MEDS ORDERED: Ibuprofen 600 MG Tab PO PRN (20:49)
[2021-02-01] MEDS ORDERED: Albuterol/Ipratropium 3.0-0.5 MG/3 ML Neb Soln NEB PRN (20:49)
[2021-02-01] MEDS: Sodium Chloride 0.9% 1,000 ML IV SCH ×2 (20:49→20:58)
[2021-02-01] MEDS ORDERED: Acetaminophen 325 MG Tab PO PRN (20:49)
[2021-02-01] MEDS ORDERED: Albuterol 0.083% 2.5 MG/3 ML Neb Soln NEB PRN (20:49)
[2021-02-01] MEDS ORDERED: LORazepam 2 MG/ML SDV IV PRN (20:49)
[2021-02-01] MEDS ORDERED: Bisacodyl 5 MG Tab PO PRN (20:49)
[2021-02-01] MEDS ORDERED: Ondansetron 4 MG Tab.DIS PO PRN (20:49)
[2021-02-01] MEDS ORDERED: Docusate Sodium 100 MG Cap PO PRN (20:49)
[2021-02-01] MEDS ORDERED: Vancomycin 1.75 GM in Sodium Chloride 0.9% 500 ML IV ONE (21:03)
[2021-02-01] MEDS: Pantoprazole 40 MG Vial IV SCH (21:48)
[2021-02-01] MEDS: Gabapentin 300 MG Cap PO SCH (21:48)
[2021-02-01] MEDS ORDERED: Vancomycin 1 GM SDV ONE (22:06)
[2021-02-02] MEDS ORDERED: Cefepime 1 GM Vial ONE (02:00)
[2021-02-02] MEDS ORDERED: Sodium Chloride 0.9% 50 ML ONE (02:01)
[2021-02-02] MEDS: Cefepime 2 GM in Sodium Chloride 0.9% 50 ML IV SCH ×3 (02:26→18:20)
[2021-02-02] MEDS ORDERED: UBIDECARENONE 400 MG PO SCH (09:00)
[2021-02-02] MEDS ORDERED: Potassium Chloride 20 MEQ Tab.ER PO ONE ×2 (09:00→17:00)
[2021-02-02] MEDS: Calcium Carbonate/Vitamin D3 1500 MG-400 Units Tab PO SCH (09:15)
[2021-02-02] MEDS: Gabapentin 300 MG Cap PO SCH ×3 (09:15→21:05)
[2021-02-02] MEDS: Vitamin B Complex Tab PO SCH (09:16)
--- NOTE | 2021-02-02 09:35 | CR ---
CHEST: Portable 02/01/2021 at 8:07 PM CLINICAL HISTORY:Fever COMPARISON:CT 2020 FINDINGS: Heart size and pulmonary vascularity are normal. No infiltrate effusion or pneumothorax is seen.. There are atherosclerotic changes in the aorta. There is a irregular shaped blastic lesion involving the fourth rib. This is seen on prior CT 2020. There is a previous fracture of the right fifth rib posteriorly. There are also fractures of the left sixth and seventh ribs distally with callus formation. Patient has known history of prostate carcinoma. IMPRESSION: No acute cardiac pulmonary process Rib lesions and prior rib fractures in a patient with a known history of prostate carcinoma
[2021-02-02] MEDS: predniSONE 5 MG Tab PO SCH ×2 (10:37→21:05)
[2021-02-02] MEDS: PAROXETINE 10 MG PO SCH (10:38)
[2021-02-02] MEDS: Warfarin 5 MG **PTOM PO SCH (13:21)
[2021-02-02] MEDS ORDERED: Loperamide 2 MG Cap PO PRN (13:42)
--- NOTE | 2021-02-02 13:56 | PCM.PN ---
- General Info Date of Service: 02/02/21 Subjective Update: Mr. Zamora has been stable since admission last night, with no further temperature elevations. After hydration hemoglobin has dropped to 5.4 this morning and 2 units of red blood cells have been ordered. He otherwise is feeling relatively well and denies symptoms of localized infection. Functional Status: Reports: Tolerating Diet, Urinating - Review of Systems General: Reports: Weakness, Fatigue. Denies: Fever, Chills Pulmonary: Reports: No Symptoms Cardiovascular: Reports: No Symptoms Gastrointestinal: Reports: No Symptoms Genitourinary: Reports: No Symptoms Musculoskeletal: Reports: Other (Ankle pain) - Patient Data Vitals - Most Recent: Last Vital Signs Temp 97.7 F 02/02/21 13:23 Pulse 83 02/02/21 13:23 Resp 16 02/02/21 13:23 BP 128/76 02/02/21 13:23 Pulse Ox 96 02/02/21 13:23 Weight - Most Recent: 153 lb I&O - Last 24 Hours: Intake & Output 02/01/21 02/02/21 02/02/21 22:59 06:59 14:59 Intake Total 1740 1990 Output Total 800 Balance 1740 1191 Lab Results Last 24 Hours: Laboratory Results - last 24 hr 02/01/21 02/02/21 02/02/21 Range/Units 19:05 04:17 04:17 WBC 1.9 L (4.5-11.0) K/uL RBC 1.41 L (4.30-5.90) M/uL Hgb 5.4 L* D (12.0-15.0) g/dL Hct 15.4 L (40.0-54.0) % MCV 109 H (80-98) fL MCH 38 H (27-31) pg MCHC 35 (32-36) % Plt Count 42 L (150-400) K/uL Add Manual Diff Yes Neutrophils % (Manual) 65 (36-66) % Band Neutrophils % 9 (5-11) % Lymphocytes % (Manual) 12 L (24-44) % Monocytes % (Manual) 6 (2-6) % Blast Cells % 8 % Polychromasia Occasional Hypochromasia Moderate H Anisocytosis Moderate H Microcytosis Few Macrocytosis Moderate H PT 23.7 H (9.2-10.6) sec INR 2.4 Sodium (140-148) mmol/L Potassium (3.6-5.2) mmol/L Chloride (100-108) mmol/L Carbon Dioxide (21-32) mmol/L Anion Gap (5.0-14.0) mmol/L BUN (7-18) mg/dL Creatinine (0.8-1.3) mg/dL Est Cr Clr Drug Dosing mL/min Estimated GFR (MDRD) (>60) Glucose (74-106) mg/dL Calcium (8.5-10.1) mg/dL Total Bilirubin (0.2-1.0) mg/dL AST (15-37) U/L ALT (12-78) U/L Alkaline Phosphatase (46-116) U/L Total Protein (6.4-8.2) g/dL Albumin (3.4-5.0) g/dL Globulin (2.3-3.5) g/dL Albumin/Globulin Ratio (1.2-2.2) SARS-CoV-2 RNA (BASILIO) Negative (NEGATIVE) Blood Type Gel Antibody Screen Crossmatch 02/02/21 02/02/21 Range/Units 04:17 05:56 WBC (4.5-11.0) K/uL RBC (4.30-5.90) M/uL Hgb (12.0-15.0) g/dL Hct (40.0-54.0) % MCV (80-98) fL MCH (27-31) pg MCHC (32-36) % Plt Count (150-400) K/uL Add Manual Diff Neutrophils % (Manual) (36-66) % Band Neutrophils % (5-11) % Lymphocytes % (Manual) (24-44) % Monocytes % (Manual) (2-6) % Blast Cells % % Polychromasia Hypochromasia Anisocytosis Microcytosis Macrocytosis PT (9.2-10.6) sec INR Sodium 137 L (140-148) mmol/L Potassium 3.2 L (3.6-5.2) mmol/L Chloride 104 (100-108) mmol/L Carbon Dioxide 24 (21-32) mmol/L Anion Gap 12.2 (5.0-14.0) mmol/L BUN 22 H D (7-18) mg/dL Creatinine 1.2 (0.8-1.3) mg/dL Est Cr Clr Drug Dosing 61.75 mL/min Estimated GFR (MDRD) > 60 (>60) Glucose 97 (74-106) mg/dL Calcium 7.8 L (8.5-10.1) mg/dL Total Bilirubin 0.3 D (0.2-1.0) mg/dL AST 17 (15-37) U/L ALT 21 (12-78) U/L Alkaline Phosphatase 63 (46-116) U/L Total Protein 5.0 L (6.4-8.2) g/dL Albumin 2.7 L (3.4-5.0) g/dL Globulin 2.3 (2.3-3.5) g/dL Albumin/Globulin Ratio 1.2 (1.2-2.2) SARS-CoV-2 RNA (BASILIO) (NEGATIVE) Blood Type A POSITIVE Gel Antibody Screen Negative Crossmatch See Detail Med Orders - Current: Current Medications Acetaminophen (Acetaminophen 325 Mg Tab) 650 mg PO Q4H PRN PRN Reason: Pain (Mild 1-3)/fever Albuterol (Albuterol 0.083% 2.5 Mg/3 Ml Neb Soln) 2.5 mg NEB Q4H PRN PRN Reason: Shortness Of Breath/wheezing Albuterol/Ipratropium (Albuterol/Ipratropium 3.0-0.5 Mg/3 Ml Neb Soln) 3 ml NEB QID PRN PRN Reason: Shortness Of Breath/wheezing Bisacodyl (Bisacodyl 5 Mg Tab) 5 mg PO DAILY PRN PRN Reason: Constipation Calcium Carbonate (Calcium Carbonate/Vitamin D3 1500 Mg-400 Units Tab) 1 tab PO DAILY [facility] Last Admin: 02/02/21 09:15 Dose: 1 tab Documented by: Docusate Sodium (Docusate Sodium 100 Mg Cap) 100 mg PO BID PRN PRN Reason: Constipation Gabapentin (Gabapentin 300 Mg Cap) 300 mg PO TID [facility] Last Admin: 02/02/21 13:21 Dose: 300 mg Documented by: Sodium Chloride (Normal Saline) 1,000 mls @ 125 mls/hr IV ASDIRECTED [facility] Last Admin: 02/01/21 20:58 Dose: 125 mls/hr Documented by: Cefepime HCl 2 gm/ Sodium (Chloride) 50 mls @ 100 mls/hr IV Q8H [facility] Last Admin: 02/02/21 10:37 Dose: 100 mls/hr Documented by: Vancomycin HCl 1 gm/ Sodium (Chloride) 250 mls @ 166.667 mls/hr IV Q12H [facility] Last Admin: 02/02/21 11:18 Dose: 166.667 mls/hr Documented by: Ibuprofen (Ibuprofen 600 Mg Tab) 600 mg PO Q6H PRN PRN Reason: Pain/Fever Loperamide HCl (Loperamide 2 Mg Cap) 4 mg PO Q6H PRN PRN Reason: Diarrhea Lorazepam (Lorazepam 2 Mg/Ml Sdv) 1 mg IV Q6H PRN PRN Reason: Nausea/Vomiting Non-Formulary Medication (Ubidecarenone [Coenzyme Q10]) 400 mg PO DAILY [facility] Ondansetron HCl (Ondansetron 4 Mg Tab.Dis) 4 mg PO Q6H PRN PRN Reason: Nausea able to take PO Ondansetron HCl (Ondansetron 4 Mg/2 Ml Sdv) 4 mg IV Q4H PRN PRN Reason: Nausea/Vomiting Pantoprazole Sodium (Pantoprazole 40 Mg Vial) 40 mg IV BEDTIME [facility] Last Admin: 02/01/21 21:48 Dose: 40 mg Documented by: Paroxetine 10mg (Ptom) 0 each PO DAILY [facility] Last Admin: 02/02/21 10:38 Dose: 1 each Documented by: Potassium Chloride (Potassium Chloride 20 Meq Tab.Er) 40 meq PO ONETIME ONE Stop: 02/02/21 17:01 Prednisone (Prednisone 5 Mg Tab) 5 mg PO BID [facility] Last Admin: 02/02/21 10:37 Dose: 5 mg Documented by: Vitamin B Complex (Vitamin B Complex Tab) 1 each PO DAILY [facility] Last Admin: 02/02/21 09:16 Dose: 1 each Documented by: Warfarin Sodium (Warfarin 5 Mg Ptom) 5 mg PO SuMoWeThFrSa@1300 [facility] Last Admin: 02/02/21 13:21 Dose: 5 mg Documented by: Warfarin Sodium (Warfarin 5 Mg Ptom) 2.5 mg PO Tu@1300 [facility] Discontinued Medications Cefepime HCl (Cefepime 1 Gm Vial) Confirm Administered Dose 2 gm .ROUTE .STK-MED ONE Stop: 02/01/21 17:52 Last Admin: 02/01/21 20:35 Dose: Not Given Documented by: Cefepime HCl (Cefepime 1 Gm Vial) Confirm Administered Dose 2 gm .ROUTE .STK-MED ONE Stop: 02/02/21 02:01 Last Admin: 02/02/21 02:26 Dose: Not Given Documented by: Cefepime HCl 2 gm/ Sodium (Chloride) 50 mls @ 100 mls/hr IV ONETIME ONE Stop: 02/01/21 17:49 Last Admin: 02/01/21 18:12 Dose: 100 mls/hr Documented by: Sodium Chloride (Normal Saline) Confirm Administered Dose 50 mls @ as directed .ROUTE .STK-MED ONE Stop: 02/01/21 17:52 Last Admin: 02/01/21 20:35 Dose: Not Given Documented by: Vancomycin HCl 1.75 gm/ Sodium (Chloride) 500 mls @ 333.333 mls/hr IV ONETIME ONE Stop: 02/01/21 22:32 Last Admin: 02/01/21 22:23 Dose: 333.333 mls/hr Documented by: Sodium Chloride (Normal Saline) Confirm Administered Dose 50 mls @ as directed .ROUTE .STK-MED ONE Stop: 02/02/21 02:02 Last Admin: 02/02/21 02:26 Dose: Not Given Documented by: Ondansetron HCl (Ondansetron 4 Mg/2 Ml Sdv) 4 mg IVPUSH ONETIME ONE Stop: 02/01/21 19:44 Last Admin: 02/01/21 20:58 Dose: 4 mg Documented by: Potassium Chloride (Potassium Chloride 20 Meq Tab.Er) 40 meq PO ONETIME ONE Stop: 02/02/21 09:01 Last Admin: 02/02/21 09:17 Dose: 40 meq Documented by: Vancomycin HCl (Vancomycin 1 Gm Sdv) 1 gm IV .PHARMACY TO DOSE ELAINE Vancomycin HCl (Vancomycin 1 Gm Sdv) Confirm Administered Dose 2 gm .ROUTE .STK- MED ONE Stop: 02/01/21 22:07 Last Admin: 02/01/21 22:24 Dose: Not Given Documented by: - Exam General: Alert, Oriented, Cooperative, Mild Distress Lungs: Clear to Auscultation, Normal Respiratory Effort Cardiovascular: Regular Rate, Regular Rhythm, No Murmurs GI/Abdominal Exam: Soft, Non-Tender, No Organomegaly, No Distention - Patient Data Lab Results Last 24 hrs: Laboratory Results - last 24 hr 02/01/21 02/02/21 02/02/21 Range/Units 19:05 04:17 04:17 WBC 1.9 L (4.5-11.0) K/uL RBC 1.41 L (4.30-5.90) M/uL Hgb 5.4 L* D (12.0-15.0) g/dL Hct 15.4 L (40.0-54.0) % MCV 109 H (80-98) fL MCH 38 H (27-31) pg MCHC 35 (32-36) % Plt Count 42 L (150-400) K/uL Add Manual Diff Yes Neutrophils % (Manual) 65 (36-66) % Band Neutrophils % 9 (5-11) % Lymphocytes % (Manual) 12 L (24-44) % Monocytes % (Manual) 6 (2-6) % Blast Cells % 8 % Polychromasia Occasional Hypochromasia Moderate H Anisocytosis Moderate H Microcytosis Few Macrocytosis Moderate H PT 23.7 H (9.2-10.6) sec INR 2.4 Sodium (140-148) mmol/L Potassium (3.6-5.2) mmol/L Chloride (100-108) mmol/L Carbon Dioxide (21-32) mmol/L Anion Gap (5.0-14.0) mmol/L BUN (7-18) mg/dL Creatinine (0.8-1.3) mg/dL Est Cr Clr Drug Dosing mL/min Estimated GFR (MDRD) (>60) Glucose (74-106) mg/dL Calcium (8.5-10.1) mg/dL Total Bilirubin (0.2-1.0) mg/dL AST (15-37) U/L ALT (12-78) U/L Alkaline Phosphatase (46-116) U/L Total Protein (6.4-8.2) g/dL Albumin (3.4-5.0) g/dL Globulin (2.3-3.5) g/dL Albumin/Globulin Ratio (1.2-2.2) SARS-CoV-2 RNA (BASILIO) Negative (NEGATIVE) Blood Type Gel Antibody Screen Crossmatch 02/02/21 02/02/21 Range/Units 04:17 05:56 WBC (4.5-11.0) K/uL RBC (4.30-5.90) M/uL Hgb (12.0-15.0) g/dL Hct (40.0-54.0) % MCV (80-98) fL MCH (27-31) pg MCHC (32-36) % Plt Count (150-400) K/uL Add Manual Diff Neutrophils % (Manual) (36-66) % Band Neutrophils % (5-11) % Lymphocytes % (Manual) (24-44) % Monocytes % (Manual) (2-6) % Blast Cells % % Polychromasia Hypochromasia Anisocytosis Microcytosis Macrocytosis PT (9.2-10.6) sec INR Sodium 137 L (140-148) mmol/L Potassium 3.2 L (3.6-5.2) mmol/L Chloride 104 (100-108) mmol/L Carbon Dioxide 24 (21-32) mmol/L Anion Gap 12.2 (5.0-14.0) mmol/L BUN 22 H D (7-18) mg/dL Creatinine 1.2 (0.8-1.3) mg/dL Est Cr Clr Drug Dosing 61.75 mL/min Estimated GFR (MDRD) > 60 (>60) Glucose 97 (74-106) mg/dL Calcium 7.8 L (8.5-10.1) mg/dL Total Bilirubin 0.3 D (0.2-1.0) mg/dL AST 17 (15-37) U/L ALT 21 (12-78) U/L Alkaline Phosphatase 63 (46-116) U/L Total Protein 5.0 L (6.4-8.2) g/dL Albumin 2.7 L (3.4-5.0) g/dL Globulin 2.3 (2.3-3.5) g/dL Albumin/Globulin Ratio 1.2 (1.2-2.2) SARS-CoV-2 RNA (BASILIO) (NEGATIVE) Blood Type A POSITIVE Gel Antibody Screen Negative Crossmatch See Detail Result Diagrams: 02/02/21 04:17 02/02/21 04:17 Sepsis Event Note - Evaluation Sepsis Screening Result: No Definite Risk - Focused Exam Vital Signs: Vital Signs Temp Temp Pulse Resp BP Pulse Ox 02/02/21 13:23 97.7 F 83 16 128/76 96 02/02/21 13:00 97.7 F 89 16 119/73 96 02/02/21 12:30 97.7 F 94 16 110/69 96 02/02/21 12:00 97.3 F 90 16 114/73 97 02/02/21 11:45 97.3 F 91 16 118/67 96 02/02/21 11:34 97.2 F 85 16 126/78 02/02/21 11:15 97.2 F 93 16 121/75 02/02/21 11:00 96.8 F L 90 16 116/73 02/02/21 10:50 96.6 F L 90 16 123/72 02/02/21 10:43 96.6 F L 88 16 110/77 96 02/02/21 10:10 96.6 F L 89 16 110/72 96 02/02/21 09:46 97.7 F 88 16 113/73 02/02/21 08:56 98 F 89 16 114/70 96 02/02/21 08:54 97.5 F 85 16 115/75 02/02/21 08:38 97.5 F 90 15 114/76 02/02/21 08:25 97.5 F 88 15 121/72 02/02/21 07:20 96 02/02/21 07:09 97.4 F 89 16 134/87 97 - Problem List Review Problem List Initiated/Reviewed/Updated: Yes - My Orders Last 24 Hours: My Active Orders 02/02/21 10:00 Patient's Own Medication [Ptom] 0 each PO DAILY 02/02/21 13:42 PT Evaluation and Treatment [CONS] Routine Loperamide [Imodium] 4 mg PO Q6H PRN 02/02/21 17:00 Potassium Chloride [Klor-Con M20] 40 meq PO ONETIME ONE 02/03/21 05:00 BASIC METABOLIC PANEL,BMP [CHEM] Timed CBC WITH AUTO DIFF [HEME] Timed 02/03/21 09:30 VANCOMYCIN TROUGH [CHEM] Timed - Plan Plan:: ASSESSMENT AND PLAN NEUTROPENIA , CHEMOTHERAPY INDUCED NEUTROPENIA, HISTORY OF PROSTATE CANCER WITH METS TO BONE-Mr. Zamora had chemotherapy about 8 days ago, since then has been weak and not eating well. reports no abdominal pain but does have nausea and vomiting with chronic diarrhea. report very little intake for the past 36 hours. He had a fever of 101.4 on 01/31. He has been afebrile since admission. Absolute neutrophil count is over 8000 today -Saline lock IV -IV Zofran 4 mg every 4 hours as needed for nausea -Antibiotic coverage with IV Maxipime 2 gram every 8 hour and IV Vanco 1 gram every 12 hours - pharmacy to dose -blood culture x2 pending ANEMIA-hemoglobin is dropped to 5.4 following hydration, likely secondary to recent chemotherapy. No evidence of active bleeding. -Transfuse 2 units of red blood cells -Follow-up hemoglobin this afternoon and in the a.m. HISTORY OF DVT -Coumadin as directed -INR/PT in am Closed right calcaneal fracture- about 2 weeks ago, stepped off the steps and missed a step- fracturing the right calcaneus. schedule to have x-ray in 5 days. use of mobility scooter to ambulate. harshal wrapped. non-wt bearing -Tylenol or Motrin for pain Maintenance issues - - DVT prophylaxis -Coumadin - GI prophylaxis -PPI - Nutrition -regular - Ba catheter -not indicated CODE STATUS -FULL Admission justification -this patient will be admitted for inpatient services and is medically appropriate meeting medical necessity for inpatient admission as outlined in my documentation. I reasonably expect the patient will require i npatient services that span a period time over 2 midnights. I reasonably expect this patient to be discharged or transferred within 96 hours [facility]. Disposition -home with . Primary care physician - Nick Albright NP Hospitalist- Mauricio Helms M.D.
[2021-02-02] MEDS: Pantoprazole 40 MG Vial IV SCH (21:05)
[2021-02-03] MEDS: Cefepime 2 GM in Sodium Chloride 0.9% 50 ML IV SCH ×2 (01:25→09:14)
[2021-02-03] MEDS: Gabapentin 300 MG Cap PO SCH ×2 (09:00→16:30)
[2021-02-03] MEDS: Calcium Carbonate/Vitamin D3 1500 MG-400 Units Tab PO SCH (09:00)
[2021-02-03] MEDS: predniSONE 5 MG Tab PO SCH (09:00)
[2021-02-03] MEDS: PAROXETINE 10 MG PO SCH (09:01)
[2021-02-03] MEDS: Vitamin B Complex Tab PO SCH (09:01)
[2021-02-03 12:04] VITALS: BP 140/87; PULSE 83
--- NOTE | 2021-02-03 13:22 | PCM.DCSUM1 ---
Discharge Summary - Hospital Course Brief History: Mr. Zamora is a 60-year-old gentleman who was admitted through the emergency department with weakness and fever, secondary to neutropenia from recent chemotherapy. - Discharge Data Discharge Date: 02/03/21 Discharge Disposition: Home, Self-Care 01 Condition: Fair - Referral to Home Health Primary Care Physician: Nick Akhtar NP - Discharge Diagnosis/Problem(s) (1) Prostate cancer metastatic to bone SNOMED Code(s): 431125439 ICD Code: C61 - MALIGNANT NEOPLASM OF PROSTATE; C79.51 - SECONDARY MALIGNANT NEOPLASM OF BONE Status: Acute Current Visit: Yes (2) Closed right calcaneal fracture SNOMED Code(s): 52989776 ICD Code: S92.001A - UNSP FRACTURE OF RIGHT CALCANEUS, INIT FOR CLOS FX Status: Acute Priority: Low Current Visit: No Qualifiers: Encounter type: initial encounter Calcaneus location: body Fracture alignment: displaced Qualified Code(s): S92.011A - Displaced fracture of body of right calcaneus, initial encounter for closed fracture (3) Chemotherapy induced neutropenia SNOMED Code(s): 326371058 ICD Code: D70.1 - AGRANULOCYTOSIS SECONDARY TO CANCER CHEMOTHERAPY; T45.1X5A - ADVERSE EFFECT OF ANTINEOPLASTIC AND IMMUNOSUP DRUGS, INIT Status: Acute Priority: High Current Visit: Yes - Patient Summary/Data Consults: Consultations 02/01/21 20:49 Consult to Spiritual Care [CONS] Routine 02/02/21 13:42 PT Evaluation and Treatment [CONS] Routine Please Evaluate and Treat. PT Reason for Consult: Left ankle fracture This query below is only for informational purposes and is not editable. Admission Diagnosis/Problem: Neutropenia Hospital Course: Mr. Zamora is a 60-year-old gentleman who was admitted through the emergency department with weakness and fever secondary to neutropenia from recent chemotherapy. He has a known history of metastatic prostate cancer and has been receiving regular chemotherapy for management. Most recent chemotherapy was approximately 8 days prior to admission. He had become progressively more weak and on the day prior to admission had a documented temperature elevation of 101.4 degrees. Because of progressive symptoms he presented to the emergency department for further evaluation. On laboratory studies he was found to have pancytopenia with significant decrease in platelet count, low white blood cell count but not to the point of absolute neutropenia. Hemoglobin was 7.2 on initial evaluation. Blood cultures were obtained in the emergency department and remained negative throughout his hospital stay. Because of the fever he was started on broad-spectrum IV antibiotic therapy with cefepime and vancomycin. He received IV fluids through the night for management of dehydration. The following morning hemoglobin had dropped to 5.4 with hydration. There was no evidence of active bleeding. He was transfused 2 units of red blood cells and on follow-up hemoglobin was 7.2. On the morning of discharge hemoglobin was found to be 7.5. He remained afebrile throughout the duration of his hospital stay with no evidence of localized infection. Urinalysis had been obtained in the emergency room and was clear showing no evidence of infection. Chest x-ray showed no obvious infiltrates. By the time of discharge his blood cell count had improved to 3900 with 83% neutrophils. He was feeling well and tolerating a regular diet, diarrhea had resolved. He will be discharged home and follow-up with oncology as well as his primary care provider. Activity will be as tolerated and he will resume his usual diet. He will return to the emergency department if he notes recurrent temperature elevation greater than 100.5 degrees. - Patient Instructions Diet: Usual Diet as Tolerated Activity: As Tolerated Other/Special Instructions: Patient will follow up with oncology as previously scheduled. Please schedule follow-up appointment with primary care provider within 1 week. - Discharge Plan *PRESCRIPTION DRUG MONITORING PROGRAM REVIEWED*: Not Applicable *COPY OF PRESCRIPTION DRUG MONITORING REPORT IN PATIENT BRITTANY: Not Applicable Home Medications: Home Meds Gabapentin [Neurontin] 300 mg PO TID 10/30/19 [History] Leuprolide [Lupron Depot 3-Month] 1 injection IM ASDIRECTED 12/31/19 [History] Warfarin [Coumadin] 1.5 mg PO ASDIRECTED 12/31/19 [History] Calcium Carbonate [Calcium] 250 mg PO DAILY 01/16/21 [History] Ubidecarenone [Coenzyme Q10] 400 mg PO DAILY 01/16/21 [History] Vitamin B Complex [B Complex] 1 each PO DAILY 01/16/21 [History] predniSONE [Prednisone] 5 mg PO BID 01/16/21 [History] PARoxetine [Paxil] 10 mg PO DAILY 02/01/21 [History] Patient Handouts: Neutropenia Referrals: Nick Akhtar NP [Primary Care Provider] - 02/13/21 1:00 pm (Please arrive 15 minutes early to register for your appointment. ) - Discharge Summary/Plan Comment DC Time >30 min.: No Total # of Minutes for Discharge Time: 20 - Patient Data Vitals - Most Recent: Last Vital Signs Temp 96.1 F L 02/03/21 11:00 Pulse 83 02/03/21 11:00 Resp 14 02/03/21 11:00 BP 140/87 02/03/21 11:00 Pulse Ox 96 02/03/21 11:00 Weight - Most Recent: 153 lb I&O - Last 24 hours: Intake & Output 02/02/21 02/03/21 02/03/21 22:59 06:59 14:59 Intake Total 1294 50 771 Output Total 800 1100 Balance 1294 -750 -329 Lab Results - Last 24 hrs: Laboratory Results - last 24 hr 02/02/21 02/02/21 02/03/21 Range/Units 05:56 15:02 05:49 WBC 3.7 L (4.5-11.0) K/uL RBC 2.11 L (4.30-5.90) M/uL Hgb 7.3 L 7.5 L (12.0-15.0) g/dL Hct 21.5 L (40.0-54.0) % MCV 102 H (80-98) fL MCH 36 H (27-31) pg MCHC 35 (32-36) % Plt Count 42 L (150-400) K/uL Add Manual Diff Yes Neutrophils % (Manual) 83 H (36-66) % Lymphocytes % (Manual) 12 L (24-44) % Monocytes % (Manual) 1 L (2-6) % Eosinophils % (Manual) 1 L (2-4) % Basophils % (Manual) 0 (0-1) % Blast Cells % 3 % Hypochromasia Moderate H Anisocytosis Moderate H Microcytosis Moderate H PT (9.2-10.6) sec INR Sodium (140-148) mmol/L Potassium (3.6-5.2) mmol/L Chloride (100-108) mmol/L Carbon Dioxide (21-32) mmol/L Anion Gap (5.0-14.0) mmol/L BUN (7-18) mg/dL Creatinine (0.8-1.3) mg/dL Est Cr Clr Drug Dosing mL/min Estimated GFR (MDRD) (>60) Glucose (74-106) mg/dL Calcium (8.5-10.1) mg/dL Crossmatch See Detail 02/03/21 02/03/21 Range/Units 05:49 05:49 WBC (4.5-11.0) K/uL RBC (4.30-5.90) M/uL Hgb (12.0-15.0) g/dL Hct (40.0-54.0) % MCV (80-98) fL MCH (27-31) pg MCHC (32-36) % Plt Count (150-400) K/uL Add Manual Diff Neutrophils % (Manual) (36-66) % Lymphocytes % (Manual) (24-44) % Monocytes % (Manual) (2-6) % Eosinophils % (Manual) (2-4) % Basophils % (Manual) (0-1) % Blast Cells % % Hypochromasia Anisocytosis Microcytosis PT 26.1 H (9.2-10.6) sec INR 2.6 Sodium 140 (140-148) mmol/L Potassium 4.1 (3.6-5.2) mmol/L Chloride 107 (100-108) mmol/L Carbon Dioxide 24 (21-32) mmol/L Anion Gap 8.6 (5.0-14.0) mmol/L BUN 13 (7-18) mg/dL Creatinine 1.1 (0.8-1.3) mg/dL Est Cr Clr Drug Dosing 67.36 mL/min Estimated GFR (MDRD) > 60 (>60) Glucose 103 (74-106) mg/dL Calcium 7.8 L (8.5-10.1) mg/dL Crossmatch TED Results - Last 24 hrs: Microbiology 02/01/21 17:30 Aerobic Blood Culture - Preliminary Blood - Arm, Right NO GROWTH AFTER 1 DAY Anaerobic Blood Culture - Preliminary NO GROWTH AFTER 1 DAY Med Orders - Current: Current Medications Acetaminophen (Acetaminophen 325 Mg Tab) 650 mg PO Q4H PRN PRN Reason: Pain (Mild 1-3)/fever Albuterol (Albuterol 0.083% 2.5 Mg/3 Ml Neb Soln) 2.5 mg NEB Q4H PRN PRN Reason: Shortness Of Breath/wheezing Albuterol/Ipratropium (Albuterol/Ipratropium 3.0-0.5 Mg/3 Ml Neb Soln) 3 ml NEB QID PRN PRN Reason: Shortness Of Breath/wheezing Bisacodyl (Bisacodyl 5 Mg Tab) 5 mg PO DAILY PRN PRN Reason: Constipation Calcium Carbonate (Calcium Carbonate/Vitamin D3 1500 Mg-400 Units Tab) 1 tab PO DAILY [facility] Last Admin: 02/03/21 09:00 Dose: 1 tab Documented by: Docusate Sodium (Docusate Sodium 100 Mg Cap) 100 mg PO BID PRN PRN Reason: Constipation Gabapentin (Gabapentin 300 Mg Cap) 300 mg PO TID [facility] Last Admin: 02/03/21 09:00 Dose: 300 mg Documented by: Cefepime HCl 2 gm/ Sodium (Chloride) 50 mls @ 100 mls/hr IV Q8H [facility] Last Admin: 02/03/21 09:14 Dose: 100 mls/hr Documented by: Vancomycin HCl 1 gm/ Sodium (Chloride) 250 mls @ 166.667 mls/hr IV Q12H [facility] Last Admin: 02/03/21 10:58 Dose: 166.667 mls/hr Documented by: Ibuprofen (Ibuprofen 600 Mg Tab) 600 mg PO Q6H PRN PRN Reason: Pain/Fever Loperamide HCl (Loperamide 2 Mg Cap) 4 mg PO Q6H PRN PRN Reason: Diarrhea Lorazepam (Lorazepam 2 Mg/Ml Sdv) 1 mg IV Q6H PRN PRN Reason: Nausea/Vomiting Non-Formulary Medication (Ubidecarenone [Coenzyme Q10]) 400 mg PO DAILY [facility] Ondansetron HCl (Ondansetron 4 Mg Tab.Dis) 4 mg PO Q6H PRN PRN Reason: Nausea able to take PO Ondansetron HCl (Ondansetron 4 Mg/2 Ml Sdv) 4 mg IV Q4H PRN PRN Reason: Nausea/Vomiting Pantoprazole Sodium (Pantoprazole 40 Mg Tab.Cr) 40 mg PO BEDTIME [facility] Paroxetine 10mg (Ptom) 0 each PO DAILY [facility] Last Admin: 02/03/21 09:01 Dose: 1 each Documented by: Prednisone (Prednisone 5 Mg Tab) 5 mg PO BID [facility] Last Admin: 02/03/21 09:00 Dose: 5 mg Documented by: Vitamin B Complex (Vitamin B Complex Tab) 1 each PO DAILY [facility] Last Admin: 02/03/21 09:01 Dose: 1 each Documented by: Warfarin Sodium (Warfarin 5 Mg Ptom) 5 mg PO SuMoWeThFrSa@1300 [facility] Last Admin: 02/02/21 13:21 Dose: 5 mg Documented by: Warfarin Sodium (Warfarin 5 Mg Ptom) 2.5 mg PO Tu@1300 [facility] Discontinued Medications Cefepime HCl (Cefepime 1 Gm Vial) Confirm Administered Dose 2 gm .ROUTE .STK-MED ONE Stop: 02/01/21 17:52 Last Admin: 02/01/21 20:35 Dose: Not Given Documented by: Cefepime HCl (Cefepime 1 Gm Vial) Confirm Administered Dose 2 gm .ROUTE .STK-MED ONE Stop: 02/02/21 02:01 Last Admin: 02/02/21 02:26 Dose: Not Given Documented by: Cefepime HCl 2 gm/ Sodium (Chloride) 50 mls @ 100 mls/hr IV ONETIME ONE Stop: 02/01/21 17:49 Last Admin: 02/01/21 18:12 Dose: 100 mls/hr Documented by: Sodium Chloride (Normal Saline) Confirm Administered Dose 50 mls @ as directed .ROUTE .STK-MED ONE Stop: 02/01/21 17:52 Last Admin: 02/01/21 20:35 Dose: Not Given Documented by: Sodium Chloride (Normal Saline) 1,000 mls @ 125 mls/hr IV ASDIRECTED [facility] Last Admin: 02/01/21 20:58 Dose: 125 mls/hr Documented by: Vancomycin HCl 1.75 gm/ Sodium (Chloride) 500 mls @ 333.333 mls/hr IV ONETIME ONE Stop: 02/01/21 22:32 Last Admin: 02/01/21 22:23 Dose: 333.333 mls/hr Documented by: Sodium Chloride (Normal Saline) Confirm Administered Dose 50 mls @ as directed .ROUTE .STK-MED ONE Stop: 02/02/21 02:02 Last Admin: 02/02/21 02:26 Dose: Not Given Documented by: Ondansetron HCl (Ondansetron 4 Mg/2 Ml Sdv) 4 mg IVPUSH ONETIME ONE Stop: 02/01/21 19:44 Last Admin: 02/01/21 20:58 Dose: 4 mg Documented by: Pantoprazole Sodium (Pantoprazole 40 Mg Vial) 40 mg IV BEDTIME [facility] Last Admin: 02/02/21 21:05 Dose: 40 mg Documented by: Potassium Chloride (Potassium Chloride 20 Meq Tab.Er) 40 meq PO ONETIME ONE Stop: 02/02/21 09:01 Last Admin: 02/02/21 09:17 Dose: 40 meq Documented by: Potassium Chloride (Potassium Chloride 20 Meq Tab.Er) 40 meq PO ONETIME ONE Stop: 02/02/21 17:01 Last Admin: 02/02/21 18:30 Dose: 40 meq Documented by: Vancomycin HCl (Vancomycin 1 Gm Sdv) 1 gm IV .PHARMACY TO DOSE ELAINE Vancomycin HCl (Vancomycin 1 Gm Sdv) Confirm Administered Dose 2 gm .ROUTE .STK- MED ONE Stop: 02/01/21 22:07 Last Admin: 02/01/21 22:24 Dose: Not Given Documented by: - Exam General: Reports: Alert, Oriented, Cooperative, No Acute Distress Lungs: Reports: Clear to Auscultation, Normal Respiratory Effort Cardiovascular: Reports: Regular Rate, Regular Rhythm, No Murmurs GI/Abdominal Exam: Soft, Non-Tender, No Organomegaly, No Distention Extremities: Non-Tender, No Pedal Edema
[2021-02-03] MEDS: Warfarin 5 MG **PTOM PO SCH (16:29)
[2021-02-03] MEDS ORDERED: Pantoprazole 40 MG Tab.CR PO SCH (21:00)
[2021-02-07] MEDS ORDERED: Warfarin 5 MG **PTOM PO SCH (13:00)
[2021-02-07] MEDS ORDERED: Warfarin 2.5 MG Tab PO SCH (13:00)
== END 2021-02-03 15:30 | disposition home or self-care (01) | DRG 809 ==
LOC: JP.ED 15:33 → JP.MS 20:11
PROVIDERS: ADMIT Hospitalist; ATTEND Hospitalist
PROC: 30233N1 Transfusion of Nonautologous Red Blood Cells into Peripheral Vein, Percutaneous Approach (ICD-10-PCS; principal; 2021-02-01)
DX: D61.810 Antineoplastic chemotherapy induced pancytopenia (principal); C79.51 Secondary malignant neoplasm of bone; D70.1 Agranulocytosis secondary to cancer chemotherapy; C61 Malignant neoplasm of prostate; S92.011A Displaced fracture of body of right calcaneus, initial encounter for closed fracture; T45.1X5A Adverse effect of antineoplastic and immunosuppressive drugs, initial encounter; E86.0 Dehydration; Z79.52 Long term (current) use of systemic steroids; Z79.01 Long term (current) use of anticoagulants; Z79.899 Other long term (current) drug therapy; Z88.5 Allergy status to narcotic agent; Z91.011 Allergy to milk products; Z20.822 Contact with and (suspected) exposure to COVID-19
CPT/HCPCS: 36415; 36430; 71045; 71045-26; 80048; 80053; 85018; 85025; 85610; 86850; 86900; 86901; 86920; 86922; 87040; 94762; 96374; 97110-GP; 97162-GP; 97530-GP; 97535-GP; 99285-25; A9270-GY; C9113; J0692; J2405; J3370; J7030; J7040; J7050; J7512; P9016; U0002